=== PATIENT | female | born 1990 | race Caucasian/White ===

== ENCOUNTER 2019-04-23 16:48 | Emergency (ER) | payer OTHER ==
[~2019-04-23] VITALS: Ht 152.4 cm; Wt 54.4 kg
[2019-04-23 20:17] VITALS: BP 119/53
== END 2019-04-23 22:34 | disposition home or self-care (01) ==
LOC: ED 22:00
DX: K29.20 Alcoholic gastritis without bleeding (principal); F10.129 Alcohol abuse with intoxication, unspecified; F12.129 Cannabis abuse with intoxication, unspecified
CPT/HCPCS: 36415; 80053; 83690; 84703; 85025; 96372; 99283; J2550; Q0162